=== PATIENT | female | born 1965 | race Two or more races ===

== ENCOUNTER → 2017-02-23 | Outpatient (CLI) | payer OTHER ==
--- NOTE | 2017-02-25 11:41 | XCELERA REPORT ---
[address] [address] Lower Extremity Arterial Evaluation Name: MORAIMA ARRIETA Age: 51 yrs Gender: Female : 1965 Patient Status: Outpatient Patient Location: Study Date: 02/23/2017 10:03 AM Procedure: A color flow and duplex scan of the lower extremity arteries was performed bilaterally with velocity and waveform anaylsis. Reason For Study: PVD Ordering Physician: NASREEN TROY Performed By: Ernestina Adorno Measurements and Calculations Right Left CINEMA OPERATOR PSV 122.6 120.8 cm/sec Prox PFA PSV -85.6 -72.9 cm/sec Prox SFA PSV -82.5 -86.9 cm/sec Mid SFA PSV -107.0 -130.1 cm/sec Dist SFA PSV -120.7 -105.3 cm/sec Prox Pop A PSV 50.6 54.7 cm/sec Dist NORM PSV 44.5 60.9 cm/sec Dist CROWNING HAMMER OPERATOR PSV 65.1 22.6 cm/sec Dist Josh A PSV 55.3 cm/sec Christopher Pedis PSV 67.9 58.4 cm/sec Right Side Arterial Evaluation Normal velocity and triphasic waveforms noted from the Common Femoral artery to the infrageniculate vessels. 0 % stenosis noted. Ankle Brachial index is 1.07. PPG's are completely normal. Left Side Arterial Evaluation Normal velocity and triphasic waveforms noted from the Common Femoral artery to the infrageniculate vessels. 0 % stenosis noted. Ankle Brachial index is 1.07. PPG's are completely normal. Interpretation Summary No hemodynamically significant lesions in the bilateral lower extremities, on duplex imaging, at rest. : NASREEN TROY > Lane Spears
== END ==
LOC: SP 09:42
PROVIDERS: ATTEND Podiatrist Foot & Ankle Surgery
DX: I73.9 Peripheral vascular disease, unspecified (principal)
CPT/HCPCS: 93925